=== PATIENT | male | born 1960 | race Caucasian/White ===

== ENCOUNTER 2019-11-22 18:10 | Emergency (ER) | payer BC ==
[2019-11-22] MEDS ORDERED: Diphtheria,Pertussis(Acell),Tetanus Vaccine 0.5 ML SDV IM ONE (18:43)
[2019-11-22] MEDS ORDERED: Lidocaine 1% 30 ML SDV INJECT ONE ×2 (18:49→19:02)
[2019-11-22] MEDS ORDERED: Bacitracin Oint 1 GM U/D Packet TOP ONE (18:59)
--- NOTE | 2019-11-22 19:28 | EDM.PDOC ---
ED HPI GENERAL MEDICAL PROBLEM - General Chief Complaint: General Stated Complaint: LEFT THUMB HOOK. Time Seen by Provider: 11/22/19 19:05 Source of Information: Reports: Patient, RN, RN Notes Reviewed History Limitations: Reports: No Limitations - History of Present Illness INITIAL COMMENTS - FREE TEXT/NARRATIVE: Pt presents to ER with c/o fish hook in left thumb. Patient states he is unsure of when last Tetanus vaccination was. Patient states he tried to get the hook out himself. Cut other trebles off. Onset: Today, Sudden - Related Data Allergies Allergy/AdvReac Type Severity Reaction Status Date / Time Sulfa (Sulfonamide Allergy Nausea Verified 11/22/19 18:39 Antibiotics) Home Meds: Home Meds Metoprolol Tartrate 50 mg PO BID 11/22/19 [History] Past Medical History HEENT History: Reports: None Cardiovascular History: Reports: Hypertension Respiratory History: Reports: None Gastrointestinal History: Reports: None Genitourinary History: Reports: None Musculoskeletal History: Reports: None Neurological History: Reports: None Psychiatric History: Reports: None Endocrine/Metabolic History: Reports: None Hematologic History: Reports: None Immunologic History: Reports: None Oncologic (Cancer) History: Reports: None Dermatologic History: Reports: None - Infectious Disease History Infectious Disease History: Reports: None - Past Surgical History GI Surgical History: Reports: Appendectomy Social & Family History - Family History Family Medical History: Noncontributory - Tobacco Use Smoking Status *Q: Never Smoker Second Hand Smoke Exposure: No - Caffeine Use Caffeine Use: Reports: Soda - Recreational Drug Use Recreational Drug Use: No ED ROS GENERAL - Review of Systems Review Of Systems: Comprehensive ROS is negative, except as noted in HPI. ED EXAM, GENERAL - Physical Exam Exam: See Below Exam Limited By: No Limitations General Appearance: Alert, WD/WN, No Apparent Distress Eye Exam: Bilateral Eye: EOMI, Normal Inspection Ears: Normal External Exam, Hearing Grossly Normal Nose: Normal Inspection Throat/Mouth: Normal Inspection, Normal Voice, No Airway Compromise Head: Atraumatic, Normocephalic Neck: Normal Inspection Respiratory/Chest: No Respiratory Distress, Lungs Clear, Normal Breath Sounds, No Accessory Muscle Use, Chest Non-Tender Cardiovascular: Normal Peripheral Pulses, Regular Rate, Rhythm, No Edema, No Gallop, No JVD, No Murmur, No Rub Peripheral Pulses: 2+: Radial (L), Radial (R) GI/Abdominal: Normal Bowel Sounds, Soft, Non-Tender (Male) Exam: Deferred Rectal (Males) Exam: Deferred Back Exam: Normal Inspection, Full Range of Motion, NT Extremities: Normal Inspection, Normal Range of Motion, Non-Tender, Normal Capillary Refill, No Pedal Edema Neurological: Alert, Oriented, CN II-XII Intact, Normal Cognition, Normal Gait, Normal Reflexes, No Motor/Sensory Deficits Psychiatric: Normal Affect, Normal Mood Skin Exam: Warm, Dry, Intact, Normal Color, No Rash, Other (fishhook to left thumb) Lymphatic: No Adenopathy ED GENERAL MEDICAL PROCEDURES - Additional/Other Procedure(s) Other (Free Text) Procedure(s): Lidocaine 1%, 1mL to the left thumb, Fish hook removed without complication Tetanus vaccination given Course - Vital Signs Last Recorded V/S: Last Vital Signs Temp 98.2 F 11/22/19 18:36 Pulse 74 11/22/19 18:36 Resp 20 11/22/19 18:36 BP 147/82 H 11/22/19 18:36 Pulse Ox 97 11/22/19 18:36 - Orders/Labs/Meds Orders: Active Orders 24 hr Category Date Time Status Vaccines to be Administered [RC] PER UNIT ROUTINE Care 11/22/19 18:43 Active Meds: Medications Discontinued Medications Generic Name Dose Route Start Last Admin Trade Name Toya PRN Reason Stop Dose Admin Bacitracin 1 dose 11/22/19 18:59 11/22/19 19:07 Bacitracin Oint 1 Gm TOP 11/22/19 19:00 1 dose ONETIME ONE Administration Diphtheria/Tetanus/Acell Pertussis 0.5 ml 11/22/19 18:43 11/22/19 19:08 Adacel IM 11/22/19 18:44 0.5 ml .ONCE ONE Administration Lidocaine HCl 30 ml 11/22/19 18:49 11/22/19 19:12 Xylocaine-Mpf 1% INJECT 11/22/19 18:50 Not Given ONETIME ONE Lidocaine HCl 30 ml 11/22/19 19:02 11/22/19 19:07 Xylocaine-Mpf 1% INJECT 11/22/19 19:03 30 ml ONETIME ONE Administration Departure - Departure Time of Disposition: 19:28 Disposition: Home, Self-Care 01 Condition: Good Clinical Impression: Fish hook injury of finger of left hand Qualifiers: Encounter type: initial encounter Qualified Code(s): S69.92XA - Unspecified injury of left wrist, hand and finger(s), initial encounter - Discharge Information *PRESCRIPTION DRUG MONITORING PROGRAM REVIEWED*: No *COPY OF PRESCRIPTION DRUG MONITORING REPORT IN PATIENT DONNA: No Instructions: Puncture Wound, [id number] Additional Instructions: Monitor for signs of infection Keep area clean and dry Follow up with your primary care facility if worsening of problems Sepsis Event Note (ED) - Evaluation Sepsis Screening Result: No Definite Risk - Focused Exam Vital Signs: Vital Signs Temp Pulse Resp BP Pulse Ox 11/22/19 18:36 98.2 F 74 20 147/82 H 97 - My Orders Last 24 Hours: My Active Orders 11/22/19 18:43 Vaccines to be Administered [RC] PER UNIT ROUTINE - Assessment/Plan Last 24 Hours: My Active Orders 11/22/19 18:43 Vaccines to be Administered [RC] PER UNIT ROUTINE
== END 2019-11-22 20:00 | disposition home or self-care (01) ==
LOC: DL.ED 18:10
DX: S60.352A Superficial foreign body of left thumb, initial encounter (principal); I10 Essential (primary) hypertension; Z88.2 Allergy status to sulfonamides; Z23 Encounter for immunization; Z79.899 Other long term (current) drug therapy; W45.8XXA Other foreign body or object entering through skin, initial encounter
CPT/HCPCS: 90471; 90715; 99283; J2001; 99282